=== PATIENT | female | born 1985 | race American Indian/Alaskan Native ===

== ENCOUNTER 2021-08-24 05:42 | Day surgery (SDC) | payer BC ==
[2021-08-18 14:12] LABS: Hemoglobin 9.8 gm/dl (10.1-14.3); Mean Corpuscular HGB Conc 32 % (30-34); Platelet Count 311 K/mm3 (140-440); Red Cell Distribution Width 17.7 % (13.2-15.2)
[2021-08-18 14:13] LABS: Mean Corpuscular Volume 63 fl (79-97)
--- NOTE | 2021-08-22 18:20 | Short Stay Summary ---
Short Stay Documentation Date of service: 08/24/21 Narrative H&P: The patient presents with menstrual disorder. She complains of heavy bleeding. Menstrual flow lasts 5 days. Patient reports that for pain she uses OCP's. Bleeding stopped with ADRIEN taper, still heavy but regular. She bleeds heavy 2-3/5 days. Her evaluation revealed endometrial mass, she desires to proceed with hysteroscopy D&C and removal of mass. Past History : 0 Term Births: 0 Premature Births: 0 Living Children: 0 Para: 0 Mult. Births: 0 Prev : 0 Prev. attempt? 0 Aborta: 0 Elect. Ab: 0 Spont. Ab: 0 Ectopics: 0 LINE PALLETIZER History Uterine Surgery (not C/S): negative Operations: negative Hospitalizations: negative Anesthesia Complications: negative Abnormal PAP: negative Uterine Anomaly: positive fibroids NIKOLAY Exposure: negative Infertility: negative Infection History HIV Risk Eval: no Personal hx. of genital herpes: yes Hx of STD: HSV Active Medications (reviewed today): valacyclovir 1 gram tablet (valacyclovir) TAKE ONE TABLET BY MOUTH ONE TIME DAILY FOR 5 DAYS NEEDED multivitamin tablet (multivitamin) Current Allergies (reviewed today): No known allergies Past Medical History: Reviewed history from 06/02/2021 and no changes required: Negative Past Medical History Past Surgical History: Reviewed history from 06/02/2021 and no changes required: negative Family History Summary: Reviewed history Last on 06/02/2021 and no changes required:08/22/2021 Other Family Member - Has No Family History of Uterine Cancer - Entered On: 08/02/2019 Other Family Member - Has No Family History of Small Bowel Cancer - Entered On: 08/02/2019 Other Family Member - Has No Family History of Stomach Cancer - Entered On: 08/02/2019 Other Family Member - Has No Family History of Pancreatic Cancer - Entered On: 08/02/2019 Other Family Member - Has No Family History of Ovarvian Cancer - Entered On: 08/02/2019 Other Family Member - Has No Family History of Kidney/Urinary Tract Cancer - Entered On: 08/02/2019 Other Family Member - Has No Family History of Spontaneous DVT-PE - Entered On: 08/02/2019 Other Family Member - Has No Family History of Brain Cancer - Entered On: 08/02/2019 Other Family Member - Has No Family History of Biliary Tract Cancer - Entered On: 08/02/2019 MGF - Has Family History Colon Cancer - Entered On: 08/02/2019 PGM - Has Family History Breast Cancer - Entered On: 08/02/2019 General Comments - FH: Family History Breast Cancer--pgm Family History of Colon Cancer--mgf No Family History of Colon Cancer No Family History of Ovarvian Cancer Social History: Reviewed history from 06/02/2017 and no changes required: Patient is single Smoking History: Patient has never smoked. Risk Factors: Smoked Tobacco Use: Never smoker Smokeless Tobacco Use: Never Passive Smoke Exposure: no HIV High Risk Behavior: no Exercise: yes Times/wk: 2 Type of Exercise: hiking Seatbelt Use: 100 % PAP Smear History: Date of Last PAP Smear: 06/02/2021 Results: Normal Alcohol Use: no Drug Use: no Previous Tobacco Use: Signed On - 06/23/2021 Smoked Tobacco Use: Never smoker Smokeless Tobacco Use: Never Passive Smoke Exposure: no HIV High Risk Behavior: no Caffeine Use: 0 drinks per day Exercise: yes Times/wk: 2 Type of Exercise: walking & running Seatbelt Use: 100 % Sun Exposure: occasionally Alcohol Use: yes Type: occ Drinks per day: social Drug Use: no Physical Exam Appearance: well developed, well nourished, no acute distress Other Exams Lungs: no rales, rhonchi, or wheezes Heart: S1, S2, no murmur, rub, or gallop Genitourinary Exam Uterus: deferred for EUA Impression & Recommendations: Problem # 1: Menorrhagia (ICD-626.2) (QVQ67-A93.0) She desires Hysteroscopic excision of uterine mass with D&C and any other indicated procedures Consent reviewed and signed. The alternatives for this surgery were reviewed with the patient. She was informed of possible bleeding, infection, uterine perforation,injury to bowel, bladder, ureters or other adjacent organs. Possible laparoscopy or laparotomy explained to patient. The patient was instructed/informed the following: The normal length of hospital stay for this procedure. Nothing to eat or drink after midnight the evening prior to surgery. Pre-op instruction sheets given.. Infection precautions reviewed, patient to call for any signs or symptoms of infection. The usual discomforts associated with this procedure were detailed. Proper use of pain medicines was reviewed. Patient was given ample opportunity to have all her questions answered before signing informed consent. Problem # 2: Fibroids of uterus; Intramural (ICD-218.1) (PSQ14-U96.1) Medications Added to Medication List This Visit: 1) Valacyclovir 1 Gram Tablet (Valacyclovir) .... Take one tablet by mouth one time daily for 5 days as needed Patient has been reassessed/reevaluated/re-examined. H&P has been reviewed. No interval changes. - History Principal diagnosis: Menorrhagia and endometrial mass - Allergies and Medications Current Medications: Allergies No Known Allergies Allergy (Unverified 08/16/21 15:21) Home Medications Medication Instructions Recorded Confirmed Last Taken Type No Known Home Medications [No 08/16/21 08/16/21 Unknown History Reported Home Medications] - Disposition Condition at discharge: Good Disposition: 01 HOME / SELF CARE / HOMELESS Short Stay Discharge Plan Additional Instructions: ACTIVITY TOLERATED PELVIC REST -- NOTHING IN VAGINA UNTIL APPROVED BY MD NO LIFTING GREATER THAN 15 LBS KEEP FOLLOW UP APPOINTMENT TAKE MEDS PRESCRIBED YOU MAY RESUME YOUR REGULAR DIET -- AVOID SPICY OR GREASY FOODS FOR FIRST MEAL TODAY DO NOT DRIVE, OPERATE HEAVY EQUIPMENT, OR SIGN LEGAL DOCUMENTS X 24 HRS YOU MAY REMOVE SCOPOLAMINE PATCH IN 1-3 DAYS -- IF YOU EXPERIENCE ADVERSE REACTIONS SUCH DIZZINESS OR DECREASED BP REMOVE IMMEDIATELY, USE GLOVES TO REMOVE, WASH HANDS AFTER REMOVING PATCH. Follow up with: SAEID APONTE MD [Staff Physician] - (As scheduled) JOSIE LUCAS MD [Primary Care Provider] - 7 Days Prescriptions: Ibuprofen [Motrin 800 MG tab] 800 mg PO Q8HR PRN #30 tablet PRN Reason: Pain, Moderate (4-6) HYDROcodone/APAP 5-325 [[place] 5-325 mg TAB] 2 each PO ONCE PRN #7 tablet PRN Reason: Pain, Severe (7-10)
[2021-08-24] MEDS ORDERED: LACTATED RINGERS 1,000 ML IV SCH (06:00)
[2021-08-24] MEDS ORDERED: ACETAMINOPHEN 500 MG TAB PO SCH (06:00)
[2021-08-24] MEDS ORDERED: MIDAZOLAM 2 MG/2 ML INJ IV NR (06:00)
[2021-08-24] MEDS ORDERED: SCOPOLAMINE TRANSDERMAL PATCH 72 HR TD NR (06:00)
[2021-08-24] MEDS ORDERED: HYDROcodone/ACETAMINOPHEN 5-325 MG TAB PO PRN (07:30)
[2021-08-24] MEDS ORDERED: HYDROmorphone 1 MG/1 ML INJ IV PRN (07:30)
[2021-08-24] MEDS ORDERED: ONDANSETRON 4 MG/2 ML INJ IV PRN (07:30)
--- NOTE | 2021-08-24 07:30 | Anesthesia Consultation ---
Anesthesia Consult and Med Hx Date of service: 08/24/21 - Airway Anesthetic Teeth Evaluation: Good ROM Head & Neck: Adequate Mental/Hyoid Distance: Adequate Mallampati Class: Class I Intubation Access Assessment: Good - Pre-Operative Health Status ASA Pre-Surgery Classification: ASA1 Proposed Anesthetic Plan: General - Pulmonary Hx Smoking: No Hx Respiratory Symptoms: No - Cardiovascular System Hx Hypertension: No - Central Nervous System CVA: No - Endocrine Hx Renal Disease: No Hx Liver Disease: No Hx Insulin Dependent Diabetes: No Hx Non-Insulin Dependent Diabetes: No Hx Thyroid Disease: No - Hematic Hx Anemia: Yes - Other Systems Hx Obesity: No - Additional Comments Anesthesia Medical History Comments: No hx anesthetic complications.
--- NOTE | 2021-08-24 07:30 | Anesthesia Day of Surgery ---
Anesthesia Day of Surgery - Day of Surgery Patient Examined: Yes Patient H&P Reviewed: Yes Patient is NPO: Yes
[2021-08-24] MEDS ORDERED: ONDANSETRON 4 MG/2 ML INJ ONE (07:50)
[2021-08-24] MEDS ORDERED: LIDOCAINE MPF (2%) 20 MG/1 ML VIAL 5 ML ONE (07:50)
[2021-08-24] MEDS ORDERED: KETOROLAC 30 MG/1 ML INJ ONE (07:50)
[2021-08-24] MEDS ORDERED: propofoL 200 MG/20 ML VIAL IV ONE (07:51)
[2021-08-24] MEDS ORDERED: fentaNYL 100 MCG/2 ML INJ ONE (07:51)
[2021-08-24] MEDS ORDERED: LACTATED RINGERS 1,000 ML ONE (08:57)
[2021-08-24] MEDS ORDERED: dexAMETHasone 20 MG/5 ML VIAL ONE (09:00)
[2021-08-24] MEDS ORDERED: SODIUM CHLORIDE 0.9% IRRIG SOLN 2000 ML IR ONE ×2 (09:00)
--- NOTE | 2021-08-24 09:40 | Discharge Summary ---
Providers - Providers Date of discharge: 08/24/21 Attending physician: SAEID APONTE Primary care physician: JOSIE LUCAS Hospitalization Condition: Good Procedures: Hysteroscopic myomectomy with cervical dilation and uterine curettage Hospital course: Unremarkable Disposition: 01 HOME / SELF CARE / HOMELESS Final Discharge Diagnosis (Prints w/discharge instructions): Hysteroscopic myomectomy with cervical dilation and uterine curettage - Discharge Diagnoses (1) Menorrhagia Status: Acute (2) Fibroids, submucosal Status: Acute (3) Anemia Status: Acute Core Measure Documentation - Palliative Care Palliative Care/ Comfort Measures: Not Applicable - Core Measures Any of the following diagnoses?: none Exam - Constitutional Vitals: Temp Pulse Resp BP Pulse Ox 97.5 F L 83 16 131/86 100 08/24/21 06:17 08/24/21 06:17 08/24/21 06:17 08/24/21 06:17 08/24/21 06:17 General appearance: Present: no acute distress - Respiratory Respiratory effort: normal - Cardiovascular Rhythm: regular - Abdominal Female genitourinary: Present: normal - Integumentary Integumentary: Present: clear, warm, dry Plan Activity: other (No sex. No driving for 24 hours. Drink approximately 64 ounces of water a day. Ambulate frequently on your property a day.) Weight Bearing Status: Full Weight Bearing Diet: regular (Eat small meals frequently today. Avoid spicy foods today.) Special Instructions: no heavy lifting (Greater than 15 pounds) Follow up with: JOSIE LUCAS MD [Primary Care Provider] - 7 Days SAEID APONTE MD [Staff Physician] - (As scheduled) Prescriptions: Ibuprofen [Motrin 800 MG tab] 800 mg PO Q8HR PRN #30 tablet PRN Reason: Pain, Moderate (4-6) HYDROcodone/APAP 5-325 [[place] 5-325 mg TAB] 2 each PO ONCE PRN #7 tablet PRN Reason: Pain, Severe (7-10)
--- NOTE | 2021-08-24 10:02 | Post Operative Note ---
Pre-op diagnosis: Menorrhagia, fibroid, anemia Post-op diagnosis: same Findings: Approximately 2 cm mostly subcu mucosal fibroid. Procedure: Exam under anesthesia, cervical dilation, hysteroscopic myomectomy, uterine curettage. Anesthesia: MAC Surgeon: SAEID APONTE Estimated blood loss: minimal Pathology: list (Uterine tissue and fibroid) Specimen disposition: to lab Condition: stable Disposition: PACU
--- NOTE | 2021-08-24 10:55 | Post Anesthesia Evaluation ---
- Post Anesthesia Evaluation Patient Participated: Yes Airway Patent: Yes Stable Respiratory Function: Yes Nausea/Vomiting: No Temp > 96.8F: Yes Pain Manageable: Yes Adequeate Hydration: Yes Anesthesia Complications: No
--- NOTE | 2021-08-24 11:20 | Operative Report ---
Operative Report Operative Report: Date; 08/24/2021 PREOPERATIVE DIAGNOSES: 1. Menorrhagia 2. Anemia 3. Submucosal uterine fibroid 4. Desires fertility POSTOPERATIVE DIAGNOSES: 1. Menorrhagia 2. Anemia 3. Submucosal uterine fibroid 4. Desires fertility PROCEDURE PERFORMED: 1. Cervical dilation and uterine curettage (D&C). 2. Hysteroscopy. 3. Resection of endometrial myoma ANESTHESIA: General ESTIMATED BLOOD LOSS: Less than 50 cc. INDICATIONS: This is a 36-year-old female that presents above. PROCEDURE: The patient was seen in the preoperative suite. Expected procedure and postoperative course discussed with her. She was taken to the operative suite where general anesthesia was induced with only the brick machine operator and anesthesiologist present. She was placed in a dorsal lithotomy position. Exam under anesthesia revealed normal pelvis. She was prepped and draped in the normal sterile fashion. Timeout was performed. Her bladder was drained with the red rubber catheter which produced approximately 20 cc of clear yellow urine. . A bivalve operative speculum was placed in the vagina. The cervix and vagina were grossly normal with no obvious masses or deformities and the anterior lip of the cervix was grasped with the single-tooth tenaculum. The uterus was sounded to ~7 cm. The cervix was progressively dilated to allow the operative hysteroscope. Under direct visualization, the ostia were within normal limits. The endometrial lining appeared to have normal. There was a 2 cm left fundal fibroid noted. However, there was no obvious evidence of malignancy. At this point the Myosure device was used to resect the fibroid. The hysteroscope was removed and a small sharp curette was placed intrauterine very carefully using anterior wall for guidance. Endometrial curettings were obtained. The endometrial sampling was placed on Telfa pad and sent to Pathology for evaluation, permanent. The hysteroscope was introduced again, no evidence of perforation was noted. At this point procedure was ended. The single-tooth tenaculum and speculum were removed. The cervix was found to be hemostatic. Counts were correct. Patient was taken to the PACU stable. Distention fluid: Normal saline Deficit: 800 mL
[2021-08-24 15:53] VITALS: BP 131/85
== END 2021-08-24 10:56 | disposition home or self-care (01) ==
LOC: OR 05:42
PROVIDERS: ATTEND Obstetrics & Gynecology
DX: N92.0 Excessive and frequent menstruation with regular cycle (principal); D25.0 Submucous leiomyoma of uterus; Z20.822 Contact with and (suspected) exposure to COVID-19; D64.9 Anemia, unspecified; Z79.899 Other long term (current) drug therapy; Z98.890 Other specified postprocedural states
CPT/HCPCS: 36415; 58561; 81025; 85027; 86850; 86900; 86901; 88305; A4217; J1100; J1885; J2405; J2704; J3010; J7120; U0003; J2250